=== PATIENT | female | born 1970 | race Caucasian/White ===

== ENCOUNTER 2021-06-06 17:28 | Emergency (ER) | payer OTHER ==
[~2021-06-06] VITALS: Ht 167.6 cm; Wt 134.7 kg
[~2021-06-06 17:28] MED LIST: ACETAMINOPHEN-1 EAC1 PO; ALBUTEROL2.5 MG/0.5 INH; CEPHALEXIN 500500 M3 PO; DUONEB 2.5-0.5 M3 ML INH; KEFLEX500 MG PO; LEVAQUIN 750 M750 MG PO; MUCINEX TA600 MG/TA2 PO; PERCOCET 5-3251 EACH PO; PREDNISONE 20 M20 MG PO; PREDNISONE50 MG PO; PROMETHAZINE D480 ML PO; PROZAC10 MG PO; PROZAC40 MG PO; TESSALON PERLE100 MG PO; TRAMADOL 50 MG50 MG PO; ZOFRAN4 MG PO; ZPAK PO
[2021-06-06 17:35] VITALS: BP 199/85
[2021-06-06] MEDS ORDERED: ZANAFLEX4 M1 PO (17:39)
[2021-06-06] MEDS ORDERED: TOPROL XL25 MG PO (17:39)
[2021-06-06] MEDS ORDERED: MELOXICAM15 MG PO (17:40)
[2021-06-06] MEDS ORDERED: PERCOCET PO (18:28)
== END 2021-06-06 18:40 | disposition home or self-care (01) ==
LOC: M.ERS 17:28
DX: S76.911A Strain of unspecified muscles, fascia and tendons at thigh level, right thigh, initial encounter (principal); F32.9 Major depressive disorder, single episode, unspecified; J45.909 Unspecified asthma, uncomplicated; Z90.49 Acquired absence of other specified parts of digestive tract; Z90.710 Acquired absence of both cervix and uterus; Z98.890 Other specified postprocedural states; Z79.899 Other long term (current) drug therapy; Z87.891 Personal history of nicotine dependence; Z88.5 Allergy status to narcotic agent; Z88.6 Allergy status to analgesic agent; X58.XXXA Exposure to other specified factors, initial encounter; Y93.89 Activity, other specified; Y92.89 Other specified places as the place of occurrence of the external cause; Y99.8 Other external cause status